=== PATIENT | male | born 1995 | race Caucasian/White ===

== ENCOUNTER 2018-03-01 21:11 | Emergency (ER) | payer OTHER ==
--- OUTSIDE RECORDS SUMMARY | 2018-03-01 21:21 | XMS REPORT | Continuity of Care Document ---
:1995 Author Organization [facility] Care Team Providers Name Role Phone KARLI DEMPSEY Admitting Physician KARLI DEMPSEY Attending Physician Allergies and Intolerances Code Code Allergy Type Reaction Severity Start End Status System Substance Date Date 070319 RXNorm Augmentin Drug rash, hives Severe Active allergy 3 (disorder) Medications Patient Not On Self-Medication Problems Code Code System Problem Name Start Date End Date Status 73988274 SNOMED-CT Contusion of forearm 05/22/2013 U Active Procedures No data in the system Results Microbiology Results w Susceptibilities Order: CULTURE GROUP A STREP Specimen Source: Body Site:Cultural Observations:Streptococcus pyogenes (Group A) was NOT [id number] Lab Footnotes:[facility] - [id number] - [address] [place] [address] NICK BELLE Social History Code Code System Social History Description Dates Observed Observation [id number] SNOMED CT Current Smoking Unknown if ever Status smoked UNK AdministrativeGender Sex Assigned At Unknown Vital Signs No data in the system Goals Section No data in the system Health Concerns No data in the systemEncounter Diagnosis Date Code Code System Diagnosis Status J02.9 ICD10 ACUTE PHARYNGITIS UNSPECIFIED Active Advance Directives *RHIO - CONSENT IS YES Directive Type Effective Date Sample Clerk Notes Supporting Document Name Address Phone No Directive Type 11/01/2017 10:46:51 Not Specified Not Specified Not Specified None No specified AM NOT APPLICABLE PT. IS A MINOR Directive Type Effective Date Sample Clerk Notes Supporting Document Name Address Phone No Directive Type 05/22/2013 Not Specified Not Specified Not Specified None No specified 11:56:29 AM Family History Relationship: Paternal Grandfather Health Problem Age At Onset Notes [place] - Lung cancer (Malignant tumor of lung) Functional Status No data in the system Immunizations Vaccine Code Code System Vaccine Name Date Status LAST TETANUS 2010 Completed Medical Equipment No data in the system Mental Status No data in the system Assessment and Plan Assessments No data in the systemPlan Of Treatment No data in the systemPending Tests No data in the system Hospital Discharge Instructions No data in the system Reason for Visit No data in the system
--- OUTSIDE RECORDS SUMMARY | 2018-03-01 21:22 | XMS REPORT ---
:1995 External Reference #:[id number] Author Organization [facility]. Address [address] [address] Phone [phone] Care Team Providers Name Role Phone Guy Scott M.D. Care Team Information Php Software Engineer Unavailable Payers Type Date Identification Numbers Payment Provider Subscriber Commercial Effective: Policy Number: [facility] Arnoldo Ring Estephania 2017 [id number] PayID: [id number] [address] [place] [address] Medigap Part B Policy Number: [id number] Medicaid Wrap Arnoldo Ruizntosh PayID: [id number] [address] [place] [address] Medigap Part B Effective: Policy Number: Medicaid [place] Arnoldo Ring Estephania 2017 [id number] Clinic PayID: [id number] [address] [place] [address] Supplemental Policy Effective: PayID: [id number] Sliding Fee [facility] Arnoldo Ring Estephania 2017 $10 Resp Expires: [address] [place] [id number] Problems Date Description Provider Status Onset: 10/31/2017 Hypertrophy of tonsils Davis Henderson M.D. Active Onset: 10/31/2017 Sleep apnea Davis Henderson M.D. Active Onset: 10/31/2017 Malaise and fatigue Davis Henderson M.D. Active Onset: 02/15/2018 Vomiting symptom Davis Henderson M.D. Active Onset: Acute pharyngitis Inactive Inactive: 10/31/2017 Family History Date Family Member(s) Problem(s) Comments General No Current Problems Social History Type Date Description Comments Lives With Mother Lives With Brother Lives With Sister Lives With Stepfather Smoke-Free Home is smoke-free ETOH Use Denies alcohol use Smoking Patient has never smoked Recreational Drug Use Denies Drug Use Guns in Home No Smoke Alarms Yes Smoke Alarms Carbon Monoxide Detector: Yes Allergies, Adverse Reactions, Alerts Date Description Reaction Status Severity Comments 05/04/2016 Augmentin active Medications Medication Date Status Form Strength Qnty SIG Indications Ordering Provider Ondansetron HCL 02/15/ Active Tablets 4mg 15tabs 1 tab R11.10 Chakrapani 2018 every 8 Irri, M.D. hours as needed for nausea and vomiting No Active 02/15/ Hx Unknown Medications 2017 - 2017 Azithromycin 11/03/ Hx Tablets 250mg 6tabs take 2 J02.9 Maria De Jesus 2017 - tablets by Difabio, 02/15/ mouth day M.D. 2017 1 then 1 tablet by mouth days 2-5 No Active 10/31/ Hx Unknown Medications 2017 - 2017 No Active 07/27/ Hx Unknown Medications 2016 - 2016 Clarithromycin 07/27/ Hx Tablets 500mg 20tabs 1 tab by J01.90 Guy 2016 - mouth [place], 10/30/ twice a M.D. 2017 day Azithromycin 05/04/ Hx Tablets 250mg 6tabs take 2 J02.9 Maria De Jesus 2015 - tablets by Difabio, 07/26/ mouth day M.D. 2016 1 then 1 tablet by mouth days 2-5 Immunizations CPT Code Status Date Vaccine Lot # [id number] Given 11/03/2017 HPV Vaccine Type 6,11,16,18 3 Dose Schedule [id number] Intramuscular Use 60980 Given 11/03/2017 Hepatitis A Vaccine Adult Dosage [id number] 84391 Given 08/31/2013 Influenza Virus Vaccine Split Virus Use For Individual 3Yr Older 93868 Given 11/06/2009 Meningococcal Conjugate Vaccine Serogroups For Intramuscular Use 63967 Given 11/06/2009 Varicella (Chicken Pox) Vaccine 97371 Given 08/11/2009 Influenza Virus Split 3 Yrs And Above For Intramuscular Use 49429 Given 11/11/2008 Tdap 47573 Given 05/23/2007 Influenza Virus Split 3 Yrs And Above For Intramuscular Use 95630 Given 12/04/2002 Poliovirus Vaccine Subcutaneous Or Intramuscular 71510 Given 12/04/2002 MMR Vaccine, Live, For Subcutaneous Use 01936 Given 12/04/2002 DTaP Vaccine Younger Than 7 (Infanrix) 67359 Given 03/03/1999 DTaP Vaccine Younger Than 7 (Infanrix) 31473 Given 03/03/1999 Poliovirus Vaccine Oral 40515 Given 03/03/1999 Hib Hboc Conjugate 4 Dose Schedule 19672 Given 12/01/1998 MMR Vaccine, Live, For Subcutaneous Use 89422 Given 12/01/1998 Varicella (Chicken Pox) Vaccine 18820 Given 09/10/1998 Hepatitis B Vaccine Pediatric/Adolescent 59081 Given 09/10/1998 Influenza Virus Split Children 6-35 Mo Of Age Intramuscular Use 16649 Given 06/10/1998 Influenza Virus Split Children 6-35 Mo Of Age Intramuscular Use 00392 Given 03/04/1998 DTaP Vaccine Younger Than 7 (Infanrix) 51961 Given 03/04/1998 Hib Hboc Conjugate 4 Dose Schedule 28283 Given 01/02/1998 Hib Hboc Conjugate 4 Dose Schedule 80994 Given 01/02/1998 Poliovirus Vaccine Subcutaneous Or Intramuscular 80136 Given 01/02/1998 DTaP Vaccine Younger Than 7 (Infanrix) 77637 Given 1995 Hepatitis B Vaccine Pediatric/Adolescent 90306 Given 1995 Poliovirus Vaccine Subcutaneous Or Intramuscular 85107 Given 1997 DTaP Vaccine Younger Than 7 (Infanrix) 58762 Given 1997 Hib Hboc Conjugate 4 Dose Schedule 53283 Given 1995 Hepatitis B Vaccine Pediatric/Adolescent 81471 Refused 11/03/2017 Meningococcal Conjugate Vaccine Serogroups For Intramuscular Use Vital Signs Date Vital Result Comment 02/15/2018 Height 69 inches 5'9" Weight 219.00 lb BP Systolic 110 mmHg BP Diastolic 80 mmHg Heart Rate 64 /min Respiratory Rate 20 /min Body Temperature 97.8 F BMI (Body Mass Index) 32.3 kg/m2 Height in cm's 175.3 cm 11/03/2017 Height 70.5 inches 5'10.50" Weight 209.00 lb BP Systolic 120 mmHg BP Diastolic 70 mmHg Heart Rate 76 /min Respiratory Rate 19 /min Body Temperature 98.0 F BMI (Body Mass Index) 29.6 kg/m2 Height in cm's 179.1 cm 10/31/2017 Height 70.5 inches 5'10.50" Weight 210.00 lb BP Systolic 124 mmHg BP Diastolic 66 mmHg Heart Rate 80 /min Respiratory Rate 20 /min Body Temperature 98.0 F BMI (Body Mass Index) 29.7 kg/m2 Height in cm's 179.1 cm 07/27/2017 Height 70 inches 5'10" Weight 211.00 lb BP Systolic 134 mmHg BP Diastolic 70 mmHg Heart Rate 80 /min O2 % BldC Oximetry 98 % Respiratory Rate 20 /min Body Temperature 97.8 F BMI (Body Mass Index) 30.3 kg/m2 Body Mass Index Percentile 95 % Height in cm's 177.8 cm Height Percentile 55 % 05/04/2016 Height 70 inches 5'10" Weight 198.00 lb BP Systolic 120 mmHg BP Diastolic 70 mmHg Heart Rate 90 /min Respiratory Rate 20 /min Body Temperature 98.2 F BMI (Body Mass Index) 28.4 kg/m2 Body Mass Index Percentile 93 % Height in cm's 177.8 cm Height Percentile 57 % 06/23/2015 Weight 189.00 lb BP Systolic 120 mmHg BP Diastolic 72 mmHg Heart Rate 92 /min Respiratory Rate 16 /min Body Temperature 97.6 F 05/27/2015 Height 70.5 inches Weight 192.00 lb BP Systolic 128 mmHg BP Diastolic 68 mmHg Heart Rate 80 /min Respiratory Rate 20 /min Body Temperature 98.2 F BMI (Body Mass Index) 27.16 kg/m2 Height in cm's 179.1 cm 05/22/2015 Weight 195.00 lb BP Systolic 118 mmHg BP Diastolic 68 mmHg Heart Rate 80 /min Respiratory Rate 20 /min Body Temperature 97.7 F 05/09/2015 Weight 195.00 lb BP Systolic 110 mmHg BP Diastolic 70 mmHg Heart Rate 96 /min Respiratory Rate 18 /min Body Temperature 97.7 F 12/05/2014 Weight 177.00 lb BP Systolic 120 mmHg BP Diastolic 88 mmHg Heart Rate 100 /min Respiratory Rate 20 /min Body Temperature 97.4 F 10/21/2014 Weight 188.00 lb BP Systolic 110 mmHg BP Diastolic 64 mmHg Heart Rate 76 /min Respiratory Rate 20 /min Body Temperature 96.9 F 10/07/2014 Weight 184.00 lb BP Systolic 112 mmHg BP Diastolic 68 mmHg Heart Rate 84 /min Respiratory Rate 20 /min Body Temperature 97.6 F 10/02/2014 Weight 183.00 lb BP Systolic 112 mmHg BP Diastolic 72 mmHg Heart Rate 84 /min Respiratory Rate 20 /min Body Temperature 96.7 F 07/26/2014 Weight 183.00 lb BP Systolic 124 mmHg BP Diastolic 70 mmHg Heart Rate 88 /min Respiratory Rate 20 /min Body Temperature 97.6 F 05/20/2014 Weight 175.00 lb BP Systolic 118 mmHg BP Diastolic 82 mmHg Heart Rate 84 /min Respiratory Rate 18 /min Body Temperature 98.3 F 01/07/2014 Weight 178.00 lb BP Systolic 110 mmHg BP Diastolic 60 mmHg Heart Rate 80 /min Respiratory Rate 20 /min Body Temperature 97.6 F 11/21/2013 Weight 185.00 lb BP Systolic 120 mmHg BP Diastolic 82 mmHg Heart Rate 78 /min Respiratory Rate 18 /min Body Temperature 97.9 F 10/26/2013 Height 69 inches Weight 177.00 lb BP Systolic 104 mmHg BP Diastolic 68 mmHg Heart Rate 72 /min Respiratory Rate 18 /min Body Temperature 97.9 F BMI (Body Mass Index) 26.14 kg/m2 Height in cm's 175.3 cm 08/31/2013 Body Temperature 98.0 F 08/23/2013 Weight 182.00 lb BP Systolic 112 mmHg BP Diastolic 78 mmHg Heart Rate 96 /min Respiratory Rate 18 /min Body Temperature 97.7 F 07/13/2013 Weight 170.00 lb BP Systolic 110 mmHg BP Diastolic 70 mmHg Heart Rate 72 /min Respiratory Rate 18 /min Body Temperature 97.9 F 07/06/2013 Weight 164.00 lb BP Systolic 120 mmHg BP Diastolic 82 mmHg Heart Rate 96 /min Respiratory Rate 18 /min Body Temperature 98.6 F 06/22/2013 Weight 163.00 lb BP Systolic 108 mmHg BP Diastolic 60 mmHg Heart Rate 80 /min Respiratory Rate 18 /min Body Temperature 97.0 F 01/01/2013 Weight 135.00 lb BP Systolic 102 mmHg BP Diastolic 60 mmHg Heart Rate 80 /min O2 % BldC Oximetry 100 % Respiratory Rate 18 /min Body Temperature 97.1 F 12/27/2012 Height 67 inches Weight 139.00 lb BP Systolic 120 mmHg BP Diastolic 80 mmHg Heart Rate 96 /min Respiratory Rate 18 /min Body Temperature 97.8 F BMI (Body Mass Index) 21.77 kg/m2 Height in cm's 170.2 cm 11/21/2012 Weight 136.00 lb BP Systolic 100 mmHg BP Diastolic 68 mmHg Heart Rate 110 /min O2 % BldC Oximetry 100 % Respiratory Rate 18 /min Body Temperature 98.3 F 09/13/2011 Weight 110.00 lb BP Systolic 92 mmHg BP Diastolic 68 mmHg Heart Rate 100 /min Respiratory Rate 22 /min Body Temperature 97.9 F 06/29/2011 Weight 114.00 lb BP Systolic 100 mmHg BP Diastolic 58 mmHg Heart Rate 92 /min O2 % BldC Oximetry 100 % Respiratory Rate 18 /min Body Temperature 97.5 F 02/15/2011 Weight 112.00 lb BP Systolic 110 mmHg BP Diastolic 70 mmHg Heart Rate 88 /min Respiratory Rate 18 /min Body Temperature 97.6 F 12/08/2010 Weight 105.00 lb BP Systolic 118 mmHg BP Diastolic 80 mmHg Heart Rate 90 /min Respiratory Rate 18 /min Body Temperature 98.2 F 11/12/2010 Height 59.5 inches Weight 105.00 lb BP Systolic 110 mmHg BP Diastolic 56 mmHg Heart Rate 96 /min Respiratory Rate 24 /min Body Temperature 98.4 F BMI (Body Mass Index) 20.85 kg/m2 Height in cm's 151.1 cm 10/05/2010 Weight 105.00 lb BP Systolic 92 mmHg BP Diastolic 60 mmHg Heart Rate 100 /min Respiratory Rate 20 /min Body Temperature 97.0 F 07/18/2010 Weight 102.00 lb BP Systolic 106 mmHg BP Diastolic 78 mmHg Heart Rate 92 /min Respiratory Rate 26 /min Results Test Date Test Result H/L Range Note Laboratory test finding 02/15/2018 .Rapid Strep negative .Urinalysis (In House) 11/03/2017 Ua Bilirubin neg 1 Urine Glucose QL neg 1 Ua Ketones neg 1 Ua Leuko neg 1 Urine Nitrite QL TS neg 1 Ua PH Test Strip 6.0 1 Ua Protein +/- 1 Ua RBC neg 1 Urine Specific [place] 1.030 1 Urine Urobilinogen QN TS +/- 1 Laboratory test 11/03/2017 Culture Throat-Comprehensive CULTURE OBSERVAT 2, 3 finding <SEE NOTE> Laboratory test 11/03/2017 .Rapid Strep neg 4 finding GC Chlamydia Amp 11/03/2017 Specimen Type Urine 5 Assay Chlamydia NEGATIVE Negative 5, 6 GC NEGATIVE Negative 5, 7 GCCT Amp Methodology Methodology: Nuc <SEE NOTE> 5, 8 Brucella AB Igg Igm 11/01/2017 Brucella Antibody IgG, Negative L Negative 9 Eia Thyroid 11/01/2017 TSH 1.43 uIU/mL 0.34-4.82 Profile(T3+T4+TSH) T4 9.8 g/dL 4.7-13.0 T3 Uptake Units 1.08 TBI 0.69-1.41 Laboratory test finding 11/01/2017 Ebv Early Ag Igg @ [So] <9.0 U/mL 0.0- 8.9 10 [place]-Infect [place] Test 11/01/2017 Infectious [place] Test NEGATIVE Negative [place] Methodology Methodology: Lat <SEE NOTE> 11 Comprehensive Panel 11/01/2017 Sodium 140 mmol/L 136-145 Potassium 4.6 mmol/L 3.5-5.2 Chloride 104 mmol/L 100-108 Co2 27 mmol/L 21-32 Glucose 94 mg/dL 70-100 BUN 14 mg/dL 7-21 Creatinine 1.0 mg/dL 0.6-1.3 12 Calcium 10.4 mg/dL 8.5-10.8 GFR >60 T Bili 0.7 mg/dL 0.0-1.2 T Protein 7.6 gm/dL 6.4-8.2 Albumin 4.8 gm/dL 3.4-4.8 Alk Phos 124 U/L 40-150 Alt (SGPT) 62 U/L High 0-55 Ast (Sgot) 28 U/L 5-37 CBC W/Auto Differential 11/01/2017 WBC 9.6 K/uL 4.8-10.8 RBC 5.37 M/uL 4.60-6.20 Hemoglobin 16.3 gm/dL 13.5-18.0 Hematocrit 47.6 % 41.0-53.0 MCV 88.8 fL 80.0-100.0 MCHC 34.2 % 30.0-36.5 MCH 30.3 pg 27.0-34.0 RDW 11.7 % 11.0-15.0 Platelet 225 K/uL 130-450 MPV 7.8 fL 6.0-12.0 NE% 67 % 37-80 Ly% 23 % 10-50 Mo% 8 % 0-12 Eo% 1 % <=8 Ba% 1 % <=3 NE# 6.4 K/uL 1.8-8.6 Lymph# 2.2 K/uL 0.5-5.0 [place]# 0.8 K/uL 0.0-1.3 Eos# 0.1 K/uL 0.0-0.9 Baso# 0.1 K/ul 0.0-0.3 Laboratory test finding 07/27/2017 .Rapid Strep negative Laboratory test finding 05/04/2016 Beta Strep Gp A Culture Negative 13 PDF [id number] SEE IMAGE Culture Group A Strep 06/23/2015 See Note Urine Dipstick (In House) (Full Panel) 05/27/2015 Ua - Bilirubin Negative (61584) Ua - Blood Negative Ua - Glucose Negative Ua - Ketones Negative Ua - Leukocyte Esterase Negative Ua - Nitrite Negative Ua - PH 5 Ua - Protein Negative Ua - Specific [place] 1.015 Ua - Urobilinogen Normal Urine Dipstick (In House) (Full Panel) 10/26/2013 Ua - Bilirubin Negative (60648) Ua - Blood Negative Ua - Glucose Negative Ua - Ketones Negative Ua - Leukocyte Esterase Negative Ua - Nitrite Negative Ua - PH 6 Ua - Protein Negative Ua - Specific [place] 1.020 Ua - Urobilinogen Normal Urine Dipstick (In House) (98054) 12/27/2012 Ua - Bilirubin Negative Ua - Blood neg Ua - Glucose Negative Ua - Ketones Negative Ua - Nitrite Negative Ua - PH 5 Ua - Protein Negative Ua - Specific [place] 1.020 Urine Dipstick (In-House) (51400) 11/12/2010 Ua - Bilirubin Negative Ua - Blood/Hemoglobin Negative Ua - Glucose Negative Ua - Ketones Negative Ua - Leukocytes Negative Ua - Nitrite Negative Ua - PH 6 Ua - Protein Negative Ua - Specific [place] 1.005 Ua - Urobilinogen Negative 1 sent for testing as noted 2 negative 3 CULTURE OBSERVATIONS CULTURE OBSERVATIONS Pathogens were not isolated 4 dw patient 5 negative 6 A negative result does not rule out Chlamydia trachomatis infection because results are dependent on adequate specimen collection, absence of inhibitors, and sufficient DNA to be detected. 7 A negative result does not rule out Neisseria gonorrhoeae infection because results are dependent on adequate specimen collection, absence of inhibitors, and sufficient DNA to be detected. 8 Methodology: Nucleic Acid Amplification Test (NAAT) 9 This assay detects Brucella abortus, melitensis, and suis. . This test was developed and its performance characteristics determined by [employer]. It has not been cleared or approved by the Food and Drug Administration. 10 Negative < 9.0 Equivocal 9.0 - 10.9 Positive >10.9 11 Methodology: Latex Agglutination 12 Normal Kidney Function or Mild Disease - GFR >OR=60 Chronic Kidney Disease - GFR 15-59 Renal Failure - GFR < 15 GFR not calculated on patients under 18 years of age. 13 Source of Specimen: throat Procedures Date CPT Code Description Status 11/03/2017 86721 Visual Screening Test Of Visual Acuity, Quantitative, Completed Bilateral 11/03/2017 94066 Pure Tone Audiometry, Air Completed 07/27/2017 25415 Pulse Oximetry Single Determination Completed Encounters Type Date Location Provider CPT E/M Dx Office Visit 02/15/2018 10:00a [facility] Davis Henderson M.D. 72305 J02.9 R11.10 Office Visit 11/03/2017 2:30p [facility] Maria De Jesus Hwang M.D. 12159 Z00.00 J35.1 J02.9 H53.143 Z23 Office Visit 10/31/2017 3:45p [facility] Davis Henderson M.D. 15144 J35.1 G47.30 R53.83 Office Visit 07/27/2017 6:30p [facility] Michael Delgado PA-C 02004 J01.90 J20.9 Office Visit 05/04/2016 9:30a [facility] Maria De Jesus Hwang M.D. 58950 J02.9 Plan of Care 02/15/2018 - Davis Henderson M.D.J02.9 Acute pharyngitis, unspecifiedNew Labs: Culture Throat GRP A Strep ScreenComments:For warm salt water gargle and soft diet. Will inform, if tcx pos for GAS. Informed neg Rapid strep.R11.10 Vomiting , unspecifiedNew Medication:Ondansetron HCL 4 mgComments:clears/soft diet.
[2018-03-01 21:27] VITALS: BP 144/89
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
[2018-03-01] MEDS ORDERED: Clindamycin CAP* 150 MG PO ONE (22:06)
[2018-03-01] MEDS ORDERED: HYDROcodone/ACETAMIN 5-325 MG* 1 TAB PO ONE (22:06)
== END 2018-03-01 22:31 | disposition home or self-care (01) ==
LOC: UCEAST 21:11
DX: S81.002A Unspecified open wound, left knee, initial encounter (principal); L08.9 Local infection of the skin and subcutaneous tissue, unspecified; V86.95XA Unspecified occupant of 3- or 4- wheeled all-terrain vehicle (ATV) injured in nontraffic accident, initial encounter; Y93.89 Activity, other specified; Y92.9 Unspecified place or not applicable; Z88.1 Allergy status to other antibiotic agents; Z88.0 Allergy status to penicillin
CPT/HCPCS: 11000; 87070; 87205; 99202; A9270-GY; G0463